=== PATIENT | female | born 1995 | race Caucasian/White ===

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

== ENCOUNTER 2018-09-29 09:56 | Outpatient (CLI) | payer BC | END 2018-09-29 09:57 | disposition critical access hospital (66) | LOC: EMS 09:56 | PROVIDERS: ATTEND Surgery | DX: R42 Dizziness and giddiness (principal); J39.2 Other diseases of pharynx; R06.02 Shortness of breath | CPT/HCPCS: A0425; A0429 ==

== ENCOUNTER 2018-09-29 10:16 | Emergency (ER) | payer BC ==
--- NOTE | 2018-09-29 12:18 | ED Physician Documentation ---
PD HPI SKIN - Stated complaint Stated Complaint: ALLERGIC RX - Chief complaint Chief Complaint: Allergic Rx - History obtained from History obtained from: Patient - History of Present Illness Timing - onset: How many hours ago (1), Today Timing - details: Abrupt onset (she took a clindamycin capsule in preparation for wisdom teeth extraction this coming Thursday (in 2 days) and noted onset of itching and feeling of scratchy throat within half hour after. Went to PCP office and was given Benadryl. Referred to ER for concern of worsening reaction. She is feeling improved enroute and on arrival.) Location: Bodywide (slightly itchy all over.) Quality / character: Itchy Improved by: Benadryl Contributing factors: Exposed to medication (new antibiotic taken 1/2 hour prior to onset of symptoms.) Similar symptoms before: Diagnosis (has had allergic reactions in the past.) Recently seen: Not recently seen (but has scheduled wisdom teeth extractions in 2 days.) Review of Systems Constitutional: denies: Fever, Chills Nose: denies: Rhinorrhea / runny nose, Congestion Throat: denies: Dental pain / toothache, Sore throat Respiratory: reports: Dyspnea. 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" and was Rx abx for the dental procedure.) Respiratory: None Neuro: None Endocrine/Autoimmune: None - Past Surgical History Past Surgical History: Yes - Present Medications Home Medications: Ambulatory Orders Medication Instructions Recorded Confirmed Clonazepam 0.5 mg PO 03/07/13 03/07/13 Sertraline HCl [Zoloft] 50 mg PO 03/07/13 03/07/13 Azithromycin [Zithromax] 500 mg PO ONCE #2 tablet 09/29/18 - Allergies Allergies/Adverse Reactions: Allergies Allergy/AdvReac Type Severity Reaction Status Date / Time amoxicillin [Amoxicillin] Allergy unknown Verified 03/07/13 15:06 clindamycin Allergy Itching Verified 09/29/18 10:23 morphine Allergy cardiac Verified 03/07/13 15:06 arrest - Social History Does the pt smoke?: No Smoking Status: Never smoker Does the pt drink ETOH?: No Does the pt have substance abuse?: No PD ED PE NORMAL - Vitals Vital signs reviewed: Yes - General General: Alert and oriented X 3, No acute distress, Well developed/nourished - HEENT HEENT: Moist mucous membranes, Pharynx benign (no edema) - Neck Neck: Supple, no meningeal sign, No adenopathy - Cardiac Cardiac: RRR, No murmur (I don't hear a murmur myself) - Respiratory Respiratory: Clear bilaterally - Abdomen Abdomen: Soft, Non tender - Derm Derm: Normal color, Warm and dry, No rash Results - Vitals Vitals: Vital Signs - 24 hr 09/29/18 09/29/18 09/29/18 10:20 10:43 13:36 Temperature 36.5 C Heart Rate 64 52 L 59 L Respiratory 18 17 18 Rate Blood Pressure 131/85 H 112/63 107/62 O2 Saturation 100 99 99 Oxygen O2 Source Room air PD MEDICAL DECISION MAKING - ED course Complexity details: considered differential (she seems to be passed the peak of the reaction with just benadryl and time. I suggested long acting antihistamine and a dose of steroid to outlast the reaction time. Up to Date gave other recommended regimens for dental prophylaxis for endocarditis. ), d/w patient Departure - Departure Disposition: 01 Home, Self Care Clinical Impression: Drug allergy, antibiotic Condition: Stable Record reviewed to determine appropriate education?: Yes Instructions: ED Drug React Allergic Follow-Up: Shanika Mcconnell MD [Primary Care Provider] - Michael Powell DDS [Provider Admit Priv/Credential] - Prescriptions: Azithromycin [Zithromax] 500 mg PO ONCE #2 tablet Comments: Stay well-hydrated. Continue Benadryl every 6 hours if needed for itchiness. This should improve over the next day or so. Alternative antibiotic you can take azithromycin 2 tablets once either the morning of or the day before the procedure to cover against infection in the heart valves etc. Discharge Date/Time: 09/29/18 13:36
[2018-09-29] MEDS ORDERED: DEXAMETHASONE 10 MG/ML VIAL IVP STA (12:57)
[2018-09-29] MEDS ORDERED: CETIRIZINE 10 MG TABLET PO STA (12:57)
[2018-09-29 13:37] VITALS: BP 107/62
== END 2018-09-29 13:36 | disposition home or self-care (01) ==
LOC: EDUNIT# → ED 10:16
DX: L29.9 Pruritus, unspecified (principal); R06.00 Dyspnea, unspecified; R09.89 Other specified symptoms and signs involving the circulatory and respiratory systems; T36.8X5A Adverse effect of other systemic antibiotics, initial encounter
CPT/HCPCS: 99283; A9270